=== PATIENT | female | born 1965 | race Two or more races ===

== ENCOUNTER 2022-08-14 16:59 | Emergency (ER) | payer OTHER ==
[~2022-08-14] VITALS: Ht 157.5 cm; Wt 103.9 kg
[~2022-08-14 16:59] MED LIST: LOSARTAN POTASS50 MG; METFORMIN HCL500 M1
[2022-08-14] MEDS ORDERED: JANUMET XR 1001 EACH ×2 (17:33→17:34)
[2022-08-14] MEDS ORDERED: METRONIDAZOLE500 MG PO (21:17)
[2022-08-14] MEDS ORDERED: LEVSIN/SL0.125 MG SL (21:17)
[2022-08-14] MEDS ORDERED: OMEPRAZOLE40 MG PO (21:17)
[2022-08-14] MEDS ORDERED: CIPRO500 MG PO (21:17)
== END 2022-08-14 21:33 | disposition home or self-care (01) ==
LOC: ER 16:59
DX: K57.32 Diverticulitis of large intestine without perforation or abscess without bleeding (principal); K57.30 Diverticulosis of large intestine without perforation or abscess without bleeding; E11.9 Type 2 diabetes mellitus without complications; I10 Essential (primary) hypertension

== ENCOUNTER 2022-08-19 11:16 | Emergency (ER) | payer OTHER ==
[~2022-08-19] VITALS: Ht 154.9 cm; Wt 90.7 kg
[~2022-08-19 11:16] MED LIST changes: +CIPRO500 MG PO; +JANUMET XR 1001 EACH; +LEVSIN/SL0.125 MG SL; +METRONIDAZOLE500 MG PO; +OMEPRAZOLE40 MG PO
== END 2022-08-19 19:30 | disposition home or self-care (01) ==
LOC: ER 11:16
DX: N20.1 Calculus of ureter (principal); I10 Essential (primary) hypertension; K57.32 Diverticulitis of large intestine without perforation or abscess without bleeding

== ENCOUNTER 2022-10-14 05:28 | Emergency (ER) | payer OTHER ==
[~2022-10-14] VITALS: Ht 157.5 cm; Wt 90.7 kg
[2022-10-14] MEDS ORDERED: TOUJEO SOL300 UNIT/1 (05:44)
[2022-10-14] MEDS ORDERED: ATORVASTATIN CA20 MG PO (05:44)
== END 2022-10-14 10:01 | disposition home or self-care (01) ==
LOC: ER 05:28
DX: N39.0 Urinary tract infection, site not specified (principal); N20.0 Calculus of kidney; K57.90 Diverticulosis of intestine, part unspecified, without perforation or abscess without bleeding; K44.9 Diaphragmatic hernia without obstruction or gangrene; E11.9 Type 2 diabetes mellitus without complications; Z79.4 Long term (current) use of insulin; I10 Essential (primary) hypertension

== ENCOUNTER 2022-10-17 21:45 | Inpatient (IN) | payer OTHER ==
[~2022-10-17] VITALS: Ht 157.5 cm; Wt 90.7 kg
[~2022-10-17 21:45] MED LIST changes: +ATORVASTATIN CA20 MG PO; +TOUJEO SOL300 UNIT/1
== END 2022-10-21 14:29 | disposition home or self-care (01) | DRG 694 ==
LOC: ER 21:45 → MEDJ 10-18 18:02 → SEC-K 10-18 18:02 → MEDJ 10-18 21:24
PROVIDERS: General Practice; Internal Medicine Infectious Disease; Surgery; ADMIT Internal Medicine; ATTEND Internal Medicine
PROC: 0T7D8DZ Dilation of Urethra with Intraluminal Device, Via Natural or Artificial Opening Endoscopic (ICD-10-PCS; principal; 2022-10-20 19:30)
DX: N13.2 Hydronephrosis with renal and ureteral calculous obstruction (principal); N39.0 Urinary tract infection, site not specified; E11.9 Type 2 diabetes mellitus without complications; Z79.4 Long term (current) use of insulin; I10 Essential (primary) hypertension

== ENCOUNTER 2022-12-22 10:52 | Inpatient (IN) | payer OTHER ==
[~2022-12-22] VITALS: Ht 157.5 cm; Wt 89.8 kg
[~2022-12-22 10:52] MED LIST changes: +AMOX-CLAV 875-1 EACH PO; +COZAAR25 MG PO; +DICLOFENAC SODI50 MG PO; +TAMS0.4C PO; +TOUJEO MAX300 UNIT/1; +TRAMADOL HCL50 MG PO
[2022-12-22 12:13] LABS: URINE APPEARANCE Cloudy; URINE BILIRRUBIN Negative (NEGATIVE); URINE BLOOD Large; URINE COLOR Yellow; URINE GLUCOSE Negative (NEGATIVE); URINE LEUKOCYTE Moderate; URINE NITRATE Negative; URINE PROTEIN 30 (NEGATIVE); URINE UROBILINOGEN 0.2 E.U./dl
[2022-12-22 12:14] LABS: URINE BACTERIA 100.7 uL (0.0-1933); URINE EPITHELIAL CELLS 11.2 uL (0.0-38.8); URINE RBC 169.4 uL (0.0-20.8); URINE WBC 249.3 uL (0.0-23.2)
[2022-12-22 12:20] LABS: HEMATOCRIT 28.9 % (36.0-45.00); HEMOGLOBIN 9.3 g/dL (12.0-15.00); MEAN CELL VOLUME 80.3 fL (80.00-100.00); MEAN CORPUSCULAR HEMOGLOBIN 25.8 pg (27.00-32.0); MEAN CORPUSCULAR HGB CONC 32.2 g/dl (32.0-36.0); PLATELET COUNT 315 K/uL (150-450); RED CELL DISTRIBUTION WIDTH 14.8 % (11.5-14.5)
[2022-12-22 12:34] LABS: URINE CRYSTALS MANY /HPF
[2022-12-22 13:08] LABS: ALBUMIN 3.2 gm/dL (3.4-5.0); BILIRUBIN TOTAL 0.33 mg/dL (0.3-1.2); CALCIUM 9.8 mg/dL (8.5-10.1); CREATININE SERUM 2.51 mg/dL (0.55-1.02); GFR 19.83; GLOBULINA 4.2 G/DL (2.4-3.5); POTASSIUM 4.58 mEq/L (3.5-5.1); TOTAL PROTEIN 7.4 gm/dL (6.4-8.2)
[2022-12-22 19:07] LABS: INR 1.05; PARTIAL THROMBOPLASTIN TIME 27.1 SECONDS (22.0-34.0)
[2022-12-22 21:45] LABS: MAGNESIUM 1.9 mg/dL (1.8-2.4); PHOSPHOROUS 3.7 mg/dL (2.5-4.9)
[2022-12-24 06:06] LABS: HEMATOCRIT 26.3 % (36.0-45.00); HEMOGLOBIN 8.4 g/dL (12.0-15.00); MEAN CELL VOLUME 80.7 fL (80.00-100.00); MEAN CORPUSCULAR HEMOGLOBIN 25.7 pg (27.00-32.0); PLATELET COUNT 283 K/uL (150-450); RED BLOOD COUNT 3.26 M/uL (4.00-6.00); RED CELL DISTRIBUTION WIDTH 14.8 % (11.5-14.5)
[2022-12-24 06:50] LABS: ALBUMIN 2.8 gm/dL (3.4-5.0); BILIRUBIN TOTAL 0.28 mg/dL (0.3-1.2); CALCIUM 8.9 mg/dL (8.5-10.1); CREATININE SERUM 2.17 mg/dL (0.55-1.02); GFR 23.46; GLOBULINA 3.5 G/DL (2.4-3.5); MAGNESIUM 1.9 mg/dL (1.8-2.4); PHOSPHOROUS 4.3 mg/dL (2.5-4.9); POTASSIUM 4.11 mEq/L (3.5-5.1); TOTAL PROTEIN 6.3 gm/dL (6.4-8.2)
[2022-12-24 06:52] LABS: C-REACTIVE PROTEIN 2.35 MG/DL (0.00-0.29)
[2022-12-24 12:18] LABS: PH,URINE 5.5 (5.0-8.0); URINE APPEARANCE Cloudy; URINE BILIRRUBIN Negative (NEGATIVE); URINE BLOOD Large; URINE COLOR Orange; URINE LEUKOCYTE Large; URINE NITRATE Negative; URINE PROTEIN 30 (NEGATIVE); URINE UROBILINOGEN 0.2 E.U./dl
[2022-12-24 12:19] LABS: URINE BACTERIA 254.5 uL (0.0-1933); URINE RBC 6183.7 uL (0.0-20.8); URINE WBC 480.3 uL (0.0-23.2)
[2022-12-24 12:35] LABS: URINE GLUCOSE 100 MG/DL (NEGATIVE)
== END 2022-12-24 16:45 | disposition home or self-care (01) | DRG 690 ==
LOC: ER 10:52 → MEDJ 20:33
PROVIDERS: Emergency Medicine; General Practice; Internal Medicine Infectious Disease; Surgery; ADMIT Specialist; ATTEND Specialist
PROC: BW21ZZZ Computerized Tomography (CT Scan) of Abdomen and Pelvis (ICD-10-PCS; 2022-12-22)
PROC: 0TPD8DZ Removal of Intraluminal Device from Urethra, Via Natural or Artificial Opening Endoscopic (ICD-10-PCS; 2022-12-23)
PROC: BT1FZZZ Fluoroscopy of Left Kidney, Ureter and Bladder (ICD-10-PCS; 2022-12-23)
PROC: 0T7D8DZ Dilation of Urethra with Intraluminal Device, Via Natural or Artificial Opening Endoscopic (ICD-10-PCS; principal; 2022-12-23 10:30)
DX: N39.0 Urinary tract infection, site not specified (principal); N17.9 Acute kidney failure, unspecified; I12.9 Hypertensive chronic kidney disease with stage 1 through stage 4 chronic kidney disease, or unspecified chronic kidney disease; N13.30 Unspecified hydronephrosis; N13.4 Hydroureter; N35.82 Other urethral stricture, female; N18.9 Chronic kidney disease, unspecified; E11.22 Type 2 diabetes mellitus with diabetic chronic kidney disease; Z79.4 Long term (current) use of insulin; E78.5 Hyperlipidemia, unspecified; Z20.822 Contact with and (suspected) exposure to COVID-19